=== PATIENT | male | born 1960 | race Caucasian/White ===

== ENCOUNTER 2016-08-03 12:40 | Emergency (ER) | payer BC, OTHER ==
[~2016-08-03] VITALS: Ht 165.1 cm; Wt 82.6 kg
[2016-08-03 12:45] VITALS: BP 150/97
== END 2016-08-03 14:16 | disposition home or self-care (01) ==
LOC: ER 12:42
DX: S06.0X0A Concussion without loss of consciousness, initial encounter (principal); S02.2XXA Fracture of nasal bones, initial encounter for closed fracture; S02.82XA Fracture of other specified skull and facial bones, left side, initial encounter for closed fracture; W51.XXXA Accidental striking against or bumped into by another person, initial encounter; Y93.89 Activity, other specified; Y92.89 Other specified places as the place of occurrence of the external cause; Y99.8 Other external cause status
CPT/HCPCS: 70450; 70486; 99284; A4606; Z7610